=== PATIENT | male | born 1995 | race Caucasian/White ===

== ENCOUNTER 2018-10-17 12:07 | Emergency (ER) | payer OTHER ==
[~2018-10-17] VITALS: Ht 180.3 cm; Wt 113.4 kg
== END 2018-10-17 14:51 | disposition home or self-care (01) ==
LOC: ER 12:07
DX: K52.89 Other specified noninfective gastroenteritis and colitis (principal)

== ENCOUNTER 2018-10-20 15:40 | Emergency (ER) | payer OTHER ==
[~2018-10-20] VITALS: Ht 175.3 cm; Wt 99.8 kg
== END 2018-10-20 20:48 | disposition home or self-care (01) ==
LOC: ER 15:40
DX: T16.2XXA Foreign body in left ear, initial encounter (principal); W45.8XXA Other foreign body or object entering through skin, initial encounter; Y93.89 Activity, other specified; Y92.89 Other specified places as the place of occurrence of the external cause; Y99.8 Other external cause status